=== PATIENT | male | born 1960 | race Two or more races ===

== ENCOUNTER 2019-12-08 14:09 | Emergency (ER) | payer OTHER, MEDICAID ==
[~2019-12-08] VITALS: Ht 175.3 cm; Wt 93.0 kg
[~2019-12-08 14:09] MED LIST: ASPI-1158 MT; CANA300T MT; GABA800T97 MT; IBUP-2030 MT; LOSA25TA26 MT; OMEP20CA14 MT; SITA1TAB6 MT; TRAZ-251 MT; UMEC1DIS IH
[2019-12-08] MEDS ORDERED: HYDROCODONE/ACETAMINOPHEN 5/325MG TABLET PO ONE (14:45)
[2019-12-08] MEDS ORDERED: KETOROLAC 30MG/ML VIAL IM ONE (16:30)
[2019-12-08 16:50] VITALS: BP 137/87
== END 2019-12-08 16:55 | disposition home or self-care (01) ==
LOC: ER 14:09
DX: S16.1XXA Strain of muscle, fascia and tendon at neck level, initial encounter (principal); S39.012A Strain of muscle, fascia and tendon of lower back, initial encounter; S09.8XXA Other specified injuries of head, initial encounter; E11.9 Type 2 diabetes mellitus without complications; E78.00 Pure hypercholesterolemia, unspecified; I10 Essential (primary) hypertension; Z79.82 Long term (current) use of aspirin; W01.0XXA Fall on same level from slipping, tripping and stumbling without subsequent striking against object, initial encounter; Y93.89 Activity, other specified; Y92.018 Other place in single-family (private) house as the place of occurrence of the external cause
CPT/HCPCS: 70450; 71045; 72100; 72125; 73502; 96372; 99285; J1885

== ENCOUNTER 2020-09-29 15:19 | Emergency (ER) | payer BC, MEDICAID ==
[~2020-09-29] VITALS: Ht 172.7 cm; Wt 87.0 kg
[2020-09-29 15:22] VITALS: BP 146/95
== END 2020-09-29 17:57 | disposition left against medical advice (07) ==
LOC: ER 15:19
DX: R10.9 Unspecified abdominal pain (principal); Z53.21 Procedure and treatment not carried out due to patient leaving prior to being seen by health care provider
CPT/HCPCS: 93005

== ENCOUNTER 2021-01-13 10:59 | Emergency (ER) | payer BC, MEDICAID ==
[~2021-01-13] VITALS: Ht 172.7 cm; Wt 82.0 kg
[~2021-01-13 10:59] MED LIST changes: -ASPI-1158 MT; +ASPI-1406 MT
[2021-01-13] MEDS ORDERED: ADENOSINE 3 MG/ML 2ML VIAL IV ONE (11:30)
[2021-01-13] MEDS ORDERED: NITROGLYCERIN 0.4MG TABLET SL SL PRN (11:30)
[2021-01-13] MEDS ORDERED: ASPIRIN 81MG TABLET PO ONE (11:30)
[2021-01-13 11:50] LABS: BASOPHILS % 0.8 % (0.0-2.0); EOSINOPHILS % 0.7 % (0.0-5.0); HEMATOCRIT. 49.6 % (42.0-52.0); HEMOGLOBIN. 16.2 g/dL (14.0-18.0); LYMPHOCYTES % 20.3 % (20.0-50.0); MEAN CORPUSCULAR HEMOGLOBIN 29.9 pg (28.0-32.0); MEAN CORPUSCULAR VOLUME 91.5 fL (80.0-94.0); MEAN PLATELET VOLUME 8.2 fl (7.4-10.4); MONOCYTES % 6.7 % (2.0-8.0); NEUTROPHILS % 71.5 % (40.0-76.0); PLATELET 200 x1000/uL (130-400); RED BLOOD CELL COUNT 5.43 mill/uL (4.7-6.1); RED CELL DISTRIBUTION WIDTH 15.4 % (11.6-14.6)
[2021-01-13 11:56] LABS: CLARITY URINE CLEAR (CLEAR); COLOR URINE YELLOW (YELLOW); KETONES URINE NEGATIVE (NEGATIVE); LEUKOCYTE ESTERASE URINE NEGATIVE (NEGATIVE); NITRITE URINE NEGATIVE (NEGATIVE); OCCULT BLOOD URINE NEGATIVE (NEGATIVE); PROTEIN URINE NEGATIVE (NEGATIVE); SPECIFIC GRAVITY URINE 1.011 (1.005-1.030)
[2021-01-13 12:05] LABS: CHLORIDE 105 mEq/L (98-107)
[2021-01-13 12:09] LABS: ETHANOL BLOOD < 10 mg/dL
[2021-01-13 12:16] LABS: *AMPHETAMINES SCREEN URINE NEGATIVE (NEGATIVE); *BENZODIAZEPINES SCREEN URINE NEGATIVE (NEGATIVE); *COCAINE SCREEN URINE NEGATIVE (NEGATIVE); METHADONE URINE SCREEN NEGATIVE (NEGATIVE)
[2021-01-13 12:17] LABS: CANNABINOID URINE SCREEN NEGATIVE (NEGATIVE); OPIATES URINE SCREEN NEGATIVE (NEGATIVE); PHENCYCLIDINE URINE SCREEN NEGATIVE (NEGATIVE)
[2021-01-13 12:47] LABS: *BARBITURATES SCREEN URINE NEGATIVE (NEGATIVE)
[2021-01-13 17:39] VITALS: BP 136/87
== END 2021-01-13 17:26 | disposition left against medical advice (07) ==
LOC: ER 10:59 → CANBEDREQ 17:57
DX: R07.89 Other chest pain (principal); F12.10 Cannabis abuse, uncomplicated; E78.00 Pure hypercholesterolemia, unspecified; I10 Essential (primary) hypertension; E11.9 Type 2 diabetes mellitus without complications; Z79.82 Long term (current) use of aspirin; Z79.899 Other long term (current) drug therapy
CPT/HCPCS: 36415; 71045; 80053; 80305; 80320; 81003; 83605; 83880; 84484; 85025; 85379; 93005; 93970; 99285; G0480